=== PATIENT | female | born 1995 | race Caucasian/White ===

== ENCOUNTER 2019-02-05 20:56 | Inpatient (IN) | payer OTHER ==
[~2019-02-05] VITALS: Ht 157.5 cm; Wt 54.4 kg
== END 2019-02-08 14:40 | disposition home or self-care (01) | DRG 683 ==
LOC: ER 20:56 → ICU-2 02-06 09:57 → SURG 02-06 09:57 → ICU-2 02-07 20:33 → SURG 02-07 20:34
PROVIDERS: ADMIT Internal Medicine
PROC: 4A033R1 Measurement of Arterial Saturation, Peripheral, Percutaneous Approach (ICD-10-PCS; principal; 2019-02-06)
PROC: 4A12X4Z Monitoring of Cardiac Electrical Activity, External Approach (ICD-10-PCS; 2019-02-06)
PROC: 3E0F7GC Introduction of Other Therapeutic Substance into Respiratory Tract, Via Natural or Artificial Opening (ICD-10-PCS; 2019-02-06)
PROC: B246ZZZ Ultrasonography of Right and Left Heart (ICD-10-PCS; 2019-02-06)
DX: N17.8 Other acute kidney failure (principal); T78.2XXA Anaphylactic shock, unspecified, initial encounter; E87.2 Acidosis; I31.3 Pericardial effusion (noninflammatory); T50.901A Poisoning by unspecified drugs, medicaments and biological substances, accidental (unintentional), initial encounter; F19.188 Other psychoactive substance abuse with other psychoactive substance-induced disorder; E86.0 Dehydration; E87.8 Other disorders of electrolyte and fluid balance, not elsewhere classified; R31.0 Gross hematuria; I08.1 Rheumatic disorders of both mitral and tricuspid valves; F19.120 Other psychoactive substance abuse with intoxication, uncomplicated; D50.8 Other iron deficiency anemias

== ENCOUNTER 2020-08-02 21:39 | Emergency (ER) | payer OTHER ==
[~2020-08-02] VITALS: Ht 170.2 cm; Wt 54.4 kg
== END 2020-08-03 02:23 | disposition home or self-care (01) ==
LOC: ER 21:39
DX: O20.0 Threatened abortion (principal)

== ENCOUNTER 2020-09-21 11:53 | Emergency (ER) | payer OTHER ==
[~2020-09-21] VITALS: Ht 167.6 cm; Wt 56.7 kg
[2020-09-21] MEDS ORDERED: PRENA1 TRUE CO1 EACH (12:02)
[2020-09-21] MEDS ORDERED: FOLIC ACID0.8 M1 (12:02)
[2020-09-21] MEDS ORDERED: ZITHROMAX200 MG PO (15:57)
== END 2020-09-21 17:03 | disposition home or self-care (01) ==
LOC: ER 11:53
DX: U07.1 COVID-19 (principal)

== ENCOUNTER 2020-10-27 02:19 | Outpatient (CLI) | payer OTHER ==
[~2020-10-27 02:19] MED LIST: FOLIC ACID0.8 M1; PRENA1 TRUE CO1 EACH; ZITHROMAX200 MG PO
== END 2020-10-27 11:23 | disposition home or self-care (01) ==
LOC: OBS/DEL 02:19
PROVIDERS: ATTEND Obstetrics & Gynecology
DX: O26.892 Other specified pregnancy related conditions, second trimester (principal); R51.9 Headache, unspecified; Z3A.27 27 weeks gestation of pregnancy

== ENCOUNTER 2021-01-20 08:13 | Inpatient (IN) | payer OTHER ==
[~2021-01-20] VITALS: Ht 165.1 cm; Wt 3.2 kg
== END 2021-01-24 14:56 | disposition home or self-care (01) | DRG 788 ==
LOC: O/R 01-22 06:52 → OB/GYN 01-22 06:52
PROVIDERS: ADMIT Obstetrics & Gynecology; ATTEND Obstetrics & Gynecology
PROC: 4A1HXFZ Monitoring of Products of Conception, Cardiac Rhythm, External Approach (ICD-10-PCS; 2021-01-22)
PROC: 10D00Z1 Extraction of Products of Conception, Low, Open Approach (ICD-10-PCS; principal; 2021-01-22 11:30)
DX: O34.211 Maternal care for low transverse scar from previous cesarean delivery (principal); Z37.0 Single live birth; Z3A.39 39 weeks gestation of pregnancy